=== PATIENT | male | born 1995 | race Caucasian/White ===

== ENCOUNTER 2022-05-20 18:08 | Emergency (ER) | payer BC, OTHER ==
[2022-05-20 19:17] LABS: BASOPHILS % (AUTO) 0.2 %; EOSINOPHILS % (AUTO) 0.1 %; HCT - HEMATOCRIT 40.4 % (42.0-52.0); HGB - HEMOGLOBIN 14.4 g/dL (14.0-18.0); LYMPHOCYTES # (AUTO) 1.1 10^3/uL (1.5-3.5); LYMPHOCYTES % (AUTO) 9.1 %; MEAN CORPUSCULAR HEMOGLOBIN 30.4 pg (27.0-31.0); MEAN CORPUSCULAR HGB CONC 35.6 g/dL (32.0-36.0); MEAN CORPUSCULAR VOLUME 85.4 fL (80.0-94.0); MEAN PLATELET VOLUME 10.4 fL (7.4-11.4); MONOCYTES # (AUTO) 0.9 10^3/uL (0.0-1.0); MONOCYTES % (AUTO) 7.4 %; NEUTROPHILS # (AUTO) 10.2 10^3/uL (1.5-6.6); PLT - PLATELET COUNT 176 10^3/uL (130-450); RED BLOOD COUNT 4.73 10^6/uL (4.70-6.10); RED CELL DISTRIBUTION WIDTH 11.9 % (12.0-15.0); WHITE BLOOD COUNT 12.3 x10^3/uL (4.8-10.8)
[2022-05-20] MEDS ORDERED: SODIUM CHLORIDE 0.9% 1,000 ML IV STA (19:21)
--- NOTE | 2022-05-20 19:23 | ED Physician Documentation ---
History of Present Illness - Stated complaint Stated Complaint: HIGH GLUCOSE/VOMITING - Chief complaint Chief Complaint: General - Additonal information Additional information: 26-year-old male presents emergency department for evaluation of hyperglycemia and concerns that he may be going into ketosis. He is a type I diabetic and has an insulin pump in place. He had noted that his blood glucose this morning was about 600. This is despite his basal rate infusing. He is unsure however without basal rate is. Given that Blood sugar he injected 10 units of Humalog. Or over the course of the day his blood sugars have steadily declined but he continues to have moderate ketones in his urine. He did vomit this morning when he was hyperglycemic. He has not vomited since. His mom reports that yesterday he had a few shots of alcohol as well as some pizza for which she did not cover. He denies any recent fevers, no cough no abdominal pain or dysuria. He is managed by Ivis Martines through the [facility] Review of Systems Constitutional: denies: Fever, Chills Eyes: reports: Reviewed and negative Nose: reports: Reviewed and negative Throat: reports: Reviewed and negative Cardiac: reports: Reviewed and negative Respiratory: reports: Reviewed and negative GI: reports: Nausea, Vomiting : reports: Reviewed and negative Skin: reports: Reviewed and negative Musculoskeletal: reports: Reviewed and negative Neurologic: reports: Reviewed and negative PD PAST MEDICAL HISTORY - Allergies Allergies/Adverse Reactions: Allergies Allergy/AdvReac Type Severity Reaction Status Date / Time No Known Drug Allergies Allergy Verified 05/20/22 18:24 PD ED PE NORMAL - General General: Alert and oriented X 3, No acute distress - HEENT HEENT: Atraumatic, Moist mucous membranes - Neck Neck: Supple, no meningeal sign, No adenopathy - Cardiac Cardiac: RRR, No murmur - Respiratory Respiratory: No respiratory distress, Clear bilaterally - Abdomen Abdomen: Normal bowel sounds, Soft, Non tender - Back Back: No CVA TTP, No spinal TTP - Derm Derm: Normal color, Warm and dry, No rash - Extremities Extremities: No deformity, No tenderness to palpate, Normal ROM s pain - Neuro Neuro: Alert and oriented X 3, 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 Eye Opening: To Voice Verbal: Oriented - Psych Psych: Normal mood Results - Vitals Vitals: Vital Signs - 24 hr 05/20/22 05/20/2222 18:21 18:24 20:30 Temperature 36.7 C 36.7 C Heart Rate 100 100 100 Respiratory 16 16 18 Rate Blood Pressure 127/80 127/80 150/87 H O2 Saturation 99 99 98 Oxygen O2 Source Room air - Labs Labs: Laboratory Tests 05/20/22 05/20/22 05/20/22 18:26 19:13 19:13 WBC 12.3 H RBC 4.73 Hgb 14.4 Hct 40.4 L MCV 85.4 MCH 30.4 MCHC 35.6 RDW 11.9 L Plt Count 176 MPV 10.4 Neut # (Auto) 10.2 H Lymph # (Auto) 1.1 L [place] # (Auto) 0.9 Eos # (Auto) 0.0 Baso # (Auto) 0.0 Absolute Nucleated RBC 0.00 Nucleated RBC % 0.0 Sodium 137 Potassium 3.7 Chloride 96 L Carbon Dioxide 28 Anion Gap 13.0 BUN 25 H Creatinine 1.0 Estimated GFR (MDRD) 90 Glucose 279 H POC Whole Bld Glucose 280 H Calcium 10.3 Total Bilirubin 1.3 H AST 26 ALT 29 Alkaline Phosphatase 98 Total Protein 8.1 Albumin 4.6 Globulin 3.5 Albumin/Globulin Ratio 1.3 Lipase 28 Urine Color Urine Clarity Urine pH Ur Specific [place] Urine Protein Urine Glucose (UA) Urine Ketones Urine Occult Blood Urine Nitrite Urine Bilirubin Urine Urobilinogen Ur Leukocyte Esterase Urine RBC Urine WBC Ur Squamous Epith Cells Urine Bacteria Ur Microscopic Review Urine Culture Comments Serum Ketones NEGATIVE 05/20/22 20:38 WBC RBC Hgb Hct MCV MCH MCHC RDW Plt Count MPV Neut # (Auto) Lymph # (Auto) [place] # (Auto) Eos # (Auto) Baso # (Auto) Absolute Nucleated RBC Nucleated RBC % Sodium Potassium Chloride Carbon Dioxide Anion Gap BUN Creatinine Estimated GFR (MDRD) Glucose POC Whole Bld Glucose Calcium Total Bilirubin AST ALT Alkaline Phosphatase Total Protein Albumin Globulin Albumin/Globulin Ratio Lipase Urine Color YELLOW Urine Clarity HAZY Urine pH 5.5 Ur Specific [place] 1.020 Urine Protein 30 H Urine Glucose (UA) >=1000 H Urine Ketones >=80 H Urine Occult Blood MODERATE H Urine Nitrite NEGATIVE Urine Bilirubin NEGATIVE Urine Urobilinogen 0.2 (NORMAL) Ur Leukocyte Esterase NEGATIVE Urine RBC 6-10 H Urine WBC 4-5 Ur Squamous Epith Cells NONE SEEN Urine Bacteria Few Ur Microscopic Review INDICATED Urine Culture Comments NOT INDICATED Serum Ketones - Rads (name of study) cxr Radiology: EMP read indepedently (No acute cardiopulmonary process) PD MEDICAL DECISION MAKING - ED course Complexity details: reviewed results, re-evaluated patient, considered differential, d/w patient ED course: 26-year-old type I diabetic comes to the emergency department with his mom for evaluation of hyperglycemia. He does have an insulin pump in place. It has a basal rate. He did spend yesterday evening drinking as well as consuming a lot of carbs for which she did not adjust or bolus his insulin. This morning he had sugars greater than 600. He vomited. He did bolus himself 10 units of Humalog. His mom was concerned because his urine showed moderate ketones therefore they presented to the emergency department to evaluate for the possibility of DKA. Screening CBC and electrolytes specifically serum care tones confirmed that he is not in DKA. His blood glucose was about 280. Chest x-ray was free of any focal infiltrates to suggest infection. Urine showed no signs of infection but there is moderate amount of hematuria. This is a new and unexpected finding for the patient. He will follow up with his primary care provider. Patient is to continue his insulin pump with CGM. Emergent return precautions were discussed for uncontrolled vomiting, hyperglycemia greater than 400, or any other further concerns of infection or DKA Departure - Departure Disposition: 01 Home, Self Care Clinical Impression: Hyperglycemia due to type 1 diabetes mellitus Hematuria Qualifiers: Hematuria type: unspecified type Qualified Code(s): R31.9 - Hematuria, unspecified Condition: Stable Record reviewed to determine appropriate education?: Yes Comments: Duc was seen today in the emergency department because you have had some high blood sugars this morning at home. The most likely cause of this was carb loading with alcohol use as well as eating a large amount of pizza and not adjusting your insulin. Your chest x-ray does not show signs of pneumonia. Your urine showed no signs of infection though there is some blood in your urine. This is called microscopic hematuria. I do recommend that you follow-up with your primary care provider. Your urine should be reevaluated in the next week. If the hematuria persist you should be evaluated for other causes of hematuria and may require additional imaging such as ultrasound or CT scanning. You did not present in diabetic ketoacidosis today. Your serum ketones were negative. I encourage you to continue the use of your insulin pump. When you know that you will be carb loading it is important to adjust the insulin. Return to the emergency department for uncontrolled vomiting, sudden belly pain, blood sugars greater than 500 or any other concerns that you could have DKA
[2022-05-20 19:27] LABS: KETONES, SERUM (ACETEST) NEGATIVE (NEGATIVE)
[2022-05-20 19:30] LABS: ALBUMIN 4.6 g/dL (3.2-5.5); ALBUMIN/GLOBULIN RATIO 1.3 (1.0-2.2); ALKALINE PHOSPHATASE 98 IU/L (42-121); ALT ALANINE AMINOTRANSFERASE 29 IU/L (10-60); AST ASPARTATE AMINOTRANSFERASE 26 IU/L (10-42); BILIRUBIN,TOTAL 1.3 mg/dL (0.2-1.0); BUN - BLOOD UREA NITROGEN 25 mg/dL (6-20); CALCIUM 10.3 mg/dL (8.5-10.3); CARBON DIOXIDE - CO2 28 mmol/L (21-32); CHLORIDE 96 mmol/L (101-111); GFR - MDRD 90 (>89); GLUCOSE 279 mg/dL (70-100); LIPASE 28 U/L (22-51); POTASSIUM 3.7 mmol/L (3.5-5.0); SODIUM 137 mmol/L (135-145); TOTAL PROTEIN 8.1 g/dL (6.7-8.2)
[2022-05-20 20:31] VITALS: BP 150/87
--- NOTE | 2022-05-20 20:37 | XRAY Report ---
PROCEDURE: Chest 1 View X-Ray INDICATIONS: chest pain TECHNIQUE: One view of the chest was acquired. COMPARISON: None FINDINGS: Surgical changes and devices: None. Lungs and pleura: No pleural effusions or pneumothorax. Lungs are clear. Mediastinum: Mediastinal contours appear normal. Heart size is normal. Bones and chest wall: No suspicious bony lesions. Overlying soft tissues appear unremarkable. IMPRESSION: No acute cardiothoracic abnormality. Reviewed by: Austen Gautam MD on 05/20/2022 8:36 PM PDT Approved by: Austen Gautam MD on 05/20/2022 8:36 PM PDT Station ID: [id number]
[2022-05-20 20:57] LABS: GLUCOSE, URINE (UA) >=1000 mg/dL (NEGATIVE); KETONES,URINE (UA) >=80 mg/dL (NEGATIVE); LEUKOCYTE ESTERASE, URINE NEGATIVE (NEGATIVE); NITRITE,URINE NEGATIVE (NEGATIVE); OCCULT BLOOD,URINE MODERATE (NEGATIVE); PH,URINE 5.5 PH (5.0-7.5); PROTEIN,URINE 30 mg/dL (NEGATIVE); UROBILINOGEN,URINE 0.2 (NORMAL) E.U./dL (NORMAL)
[2022-05-20 21:05] LABS: BILIRUBIN,URINE NEGATIVE (NEGATIVE); CLARITY,URINE HAZY (CLEAR); ICTOTEST,URINE NEGATIVE
[2022-05-20 21:13] LABS: BACTERIA,URINE Few /HPF (None Seen); SQUAMOUS EPITHELIAL CELL,UR NONE SEEN (<= Few)
== END 2022-05-20 21:27 | disposition home or self-care (01) ==
LOC: ED 18:08
DX: E10.65 Type 1 diabetes mellitus with hyperglycemia (principal); R31.21 Asymptomatic microscopic hematuria; Z96.41 Presence of insulin pump (external) (internal)
CPT/HCPCS: 36415; 80053; 81001; 81003; 82009; 83690; 85025; 87086; 96360; 99284